=== PATIENT | male | born 1935 | race Caucasian/White ===

== ENCOUNTER 2018-03-16 07:09 | Inpatient (IN) | payer OTHER ==
[2018-03-16] VITALS (8 sets, daily range): BP systolic 108–144; BP diastolic 42–66
[~2018-03-16] VITALS: Ht 172.7 cm; Wt 76.7 kg
[~2018-03-16 07:09] MED LIST: ABILIFY 5 MG TAB5 M1 PO; AMARYL4 MG PO; AMBIEN 10 MG TA10 MG; AMBIEN 10 MG TA10 MG PO; ASPIRIN325 PO; BYSTOLIC 5 MG5 M1 PO; CARDURA2 MG PO; CENTRUM COMPLE1 EACH PO; CINNAMON BARK1 GM MC; CRESTOR20 MG PO; EXFORGE 10-3201 EACH PO; EXFORGE PO; EXFORGEHCT PO; HYDROCHLOROTHIA25 M1 PO; HYDROCHLOROTHIA25 M2 PO; HYDROCODONE-APA1 TA1 PO; JANUVIA100 MG PO; KLOR-CON M1010 MEQ PO; LEVEMIR SUBQ; LEXAPRO20 MG PO; NITROGLYCERIN0.4 MG SL; PLAVIX 75 MG TA75 MG PO; PRILOSEC 20 MG20 MG PO; PROTONIX40 M2 PO; PROZAC20 MG PO; REMERON15 MG PO; SEROQUEL 25 MG25 M1 PO; TRILIPIX135 MG PO; VITAMIN D1000 UNI1 PO; ZETIA10 MG PO; ZYPREXA5 MG PO
[2018-03-16] MEDS ORDERED: LEXAPRO20 MG PO (07:25)
[2018-03-16] MEDS ORDERED: LEVEMIR SUBQ (07:33)
[2018-03-16] MEDS ORDERED: NORVASC10 MG PO (07:34)
[2018-03-16] MEDS ORDERED: PROTONIX40 M2 PO (07:34)
[2018-03-16] MEDS ORDERED: JANUVIA 50 MG T50 M1 PO (07:34)
[2018-03-16] MEDS ORDERED: UNICOMPLEX M TA1 TA1 PO (07:35)
[2018-03-16] MEDS ORDERED: KLOR-CON 1010 MEQ PO (07:35)
[2018-03-16] MEDS ORDERED: FOLGARD TABLET1 EAC1 PO (07:35)
[2018-03-16] MEDS ORDERED: ASPIR 8181 MG PO (07:35)
[2018-03-16] MEDS ORDERED: LASIX 40 MG TAB40 M1 PO (07:35)
[2018-03-16] MEDS ORDERED: MELATONIN5 M1 PO (07:36)
[2018-03-16] MEDS ORDERED: REMERON15 MG PO (07:36)
[2018-03-16] MEDS ORDERED: CARVEDILOL12.5 MG PO (07:36)
[2018-03-16] MEDS ORDERED: SEROQUEL 25 MG25 M1 PO (07:36)
[2018-03-16] MEDS ORDERED: CRESTOR10 MG PO (07:36)
[2018-03-16] MEDS ORDERED: CONSTULOSE10 GM/15 M PO (07:40)
[2018-03-16 08:24] LABS: HEMATOCRIT 38.9 % (42.0-52.0); HEMOGLOBIN 13.3 gm/dL (14.0-18.0); MCH 30.9 pg (26.0-34.0); MCHC 34.3 g/dL (28.0-37.0); MPV 9.1 fl. (7.2-11.1); NUCLEATED RBCS 0 /100WBC; PLATELET COUNT* 177 thou/uL (150-400); RBC 4.32 mil/uL (4.50-6.00); RDW-CV 13.8 % (10.5-14.5); WBC 7.4 thou/uL (4.0-11.0)
[2018-03-16 08:30] LABS: APTT 26.6 Seconds (25.0-31.3); INR 1.1
[2018-03-16 08:36] LABS: ANION GAP 10 mmol/L (7-16); BUN 26 mg/dL (7-18); CALCIUM 7.9 mg/dL (8.5-10.1); CHLORIDE 110 mmol/L (98-107); CO2 24 mmol/L (21-32); CREATININE 1.6 mg/dL (0.6-1.3); GLUCOSE 122 mg/dL (70-99); POTASSIUM 3.4 mmol/L (3.5-5.1); SODIUM 144 mmol/L (136-145)
[2018-03-16 08:55] LABS: ABSOLUTE EOSINOPHILS 0.1 thou/uL (0.0-0.7); ABSOLUTE LYMPHOCYTES 0.4 thou/uL (0.8-5.3); ABSOLUTE MONOCYTES 0.2 thou/uL (0.0-1.2); ABSOLUTE NEUTROPHILS 6.7 thou/uL (1.6-8.1); PLATELET ESTIMATE ADEQUATE
[2018-03-16 08:57] LABS: ALKALINE PHOSPHATASE 89 U/L (46-116); CK-MB MASS 1.4 ng/mL (<0.5-3.6); SGOT 14 U/L (15-37); SGPT 17 U/L (30-65); TOTAL BILIRUBIN 0.3 mg/dL (<0.1-1.0)
[2018-03-16 09:22] LABS: NT-PRO BRAIN NAT PEPTIDE 99 pg/mL (<300); TROPONIN-I LEVEL <0.06 ng/mL (<0.06)
[2018-03-16 12:39] LABS: URINE BILIRUBIN NEGATIVE (Negative); URINE BLOOD NEGATIVE (Negative); URINE CLARITY CLEAR; URINE COLOR YELLOW; URINE GLUCOSE-RANDOM NEGATIVE (Negative); URINE KETONES NEGATIVE (Negative); URINE LEUKOCYTES-REFLEX NEGATIVE (Negative); URINE NITRITE-REFLEX NEGATIVE (Negative); URINE PROTEIN NEGATIVE (Negative); URINE SPECIFIC GRAVITY <= 1.005 (1.005-1.030); URINE UROBILINOGEN 0.2 E.U./dl (0.2-1.0)
[2018-03-16] MEDS ORDERED: METFORMIN HCL500 MG PO (15:06)
--- NOTE | 2018-03-16 16:51 | EKG ---
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: : 1935 Requested By: Ubaldo Jansen Order Number: [id number] MD: Brandon Rose Measurements Intervals [place] Rate: 62 P: 22 OK: 223 QRS: -25 QRSD: 105 T: 0 QT: 472 QTc: 480 Interpretive Statements Sinus rhythm Atrial premature complex Prolonged OK interval consider Inferior infarct, old Anterior infarct, old Compared to ECG 12/09/2015 19:46:01 Atrial premature complex(es) now present Incomplete right bundle-branch block no longer present Myocardial infarct finding still present Electronically Signed On 03-16-2018 16:51:13 CDT by Brandon Rose [email or web address] <ELECTRONICALLY SIGNED> By: Brandon Rose MD, [facility] 03/16/18 1651 0737 0737 Brandon Rose MD, [facility] /EPI
--- NOTE | 2018-03-16 17:28 | 2DMMODE ---
[place] [address] 2 D/M-MODE ECHOCARDIOGRAM Name: CAROLYN VALLECILLO Room: [address] IN [facility]#: [id number] Admission: 03/16/18 Attend Phys: Noel Stallworth Discharge: Date of : 35 Date of Service: 03/16/18 1728 Report #: [id number] THIS REPORT FOR: //name// APPROVED REPORT Study performed: 03/16/2018 16:13:12 EXAM: Comprehensive 2D, Doppler, and color-flow Echocardiogram Patient Location: In-Patient Room #: [facility] Status: routine BSA: 1.93 HR: 66 bpm BP: 144/66 mmHg Rhythm: NSR Other Information Study Quality: Good Indications CVA/TIA Echo Enhancing Agent Indication: Rule out Shunt Agent(s) / Amount(s) Used: Agitated Saline 10 cc 2D Dimensions LVEF(%): 55.34 (>50%) IVSd: 14.07 (7-11mm) LVOT Diam: 19.40 (18-24mm) LVDd: 45.12 mm PWd: 12.42 (7-11mm) Ascending Ao: 34.61 (22-36mm) LVDs: 32.19 (25-40mm) Aortic Root: 35.10 mm Parsons's LVEF: 55.34 % Volumes Left Atrial Volume (Systole) LA ESV Index: 27.70 mL/m2 Aortic Valve AoV Peak Hemant.: 1.11 m/s AO Peak Gr.: 4.95 mmHg LVOT Max P.84 mmHg AO Mean Gr.: 2.35 mmHg LVOT Mean P.45 mmHg LVOT Max V: 0.84 m/s AO V2 VTI: 23.22 cm LVOT Mean V: 0.56 m/[place] [address] 2 D/M-MODE ECHOCARDIOGRAM Name: CAROLYN VALLECILLO Room: [address] IN [facility].#: [id number] Admission: 03/16/18 Attend Phys: Noel Stallworth Discharge: Date of : 35 Date of Service: 03/16/18 1728 Report #: [id number] REJI (VTI): 2.76 cm2 LVOT V1 VTI: 21.72 cm Mitral Valve E/A Ratio: 0.98 MV Decel. Time: 248.63 ms MV E Max Hemant.: 0.84 m/s MV PHT: 72.10 ms MVA (PHT): 3.05 cm2 TDI E/Lateral E': 6.46 E/Medial E': 12.00 Medial E' Hemant.: 0.07 m/s Lateral E' Hemant.: 0.13 m/s Pulmonary Valve PV Peak Hemant.: 0.97 m/s PV Peak Gr.: 3.73 mmHg Left Ventricle The left ventricle is normal size. There is normal LV segmental wall motion. Mild concentric left ventricular hypertrophy. Left ventricular systolic function is normal. The left ventricular ejection fraction is within the normal range. LVEF is 60-65%. The left ventricular diastolic function is normal. Right Ventricle The right ventricle is normal size. The right ventricular systolic function is normal. Atria The left atrium size is normal. Interatrial septum is intact without evidence of ASD or PFO. The right atrium size is normal. Aortic Valve The aortic valve is normal in structure. No aortic regurgitation is present. There is no aortic valvular stenosis. Mitral Valve The mitral valve is normal in structure. Trace mitral regurgitation. No evidence of mitral valve stenosis. Tricuspid Valve The tricuspid valve is normal in structure. Unable to assess PA pressure. Trace tricuspid regurgitation. Pulmonic Valve Pulmonic valve is not well visualized. There [place] [address] 2 D/M-MODE ECHOCARDIOGRAM Name: CAROLYN VALLECILLO Room: [address] IN .R.#: [id number] Admission: 03/16/18 Attend Phys: Noel Stallworth Discharge: Date of : 35 Date of Service: 03/16/18 1728 Report #: [id number] regurgitation. Great Vessels The aortic root is normal in size. IVC is not well visualized. Pericardium There is no pericardial effusion. <Conclusion> Mild concentric left ventricular hypertrophy. LVEF is 60-65%. Interatrial septum is intact without evidence of ASD or PFO. <ELECTRONICALLY SIGNED> By: Brandon Rose MD, [facility] 03/16/181727 27 27 Brandon Rose MD, [facility]ACC /INF
[2018-03-17 04:00] VITALS: BP 156/64
[2018-03-17 05:31] LABS: ALBUMIN 2.7 g/dL (3.4-5.0); ALKALINE PHOSPHATASE 97 U/L (46-116); ANION GAP 8 mmol/L (7-16); BUN 21 mg/dL (7-18); CALCIUM 7.7 mg/dL (8.5-10.1); CHLORIDE 110 mmol/L (98-107); CHOLESTEROL 143 mg/dL (<200); CO2 27 mmol/L (21-32); CREATININE 1.5 mg/dL (0.6-1.3); GLUCOSE 198 mg/dL (70-99); HDL CHOLESTEROL 21 mg/dL (>40); LDL CHOLESTEROL 98 mg/dL (<100); POTASSIUM 3.9 mmol/L (3.5-5.1); SGOT 12 U/L (15-37); SGPT 15 U/L (30-65); SODIUM 145 mmol/L (136-145); TC:HDL 6.8 Ratio (Not establshd); TOTAL BILIRUBIN 0.3 mg/dL (<0.1-1.0); TOTAL PROTEIN 5.3 g/dL (6.4-8.2); TRIGLYCERIDE 121 mg/dL (<150); VLDL 24 mg/dL (<40)
[2018-03-17 05:33] LABS: SERUM ASSESSMENT CLEAR
[2018-03-17 09:00] VITALS: BP 147/60; BP 147/90
[2018-03-17 12:03] VITALS: BP 140/53
[2018-03-17 12:30] VITALS: BP 140/53
[2018-03-17 15:38] VITALS: BP 153/62
[2018-03-17 16:09] LABS: GLYCOHEMOGLOBIN (HGB A1C) 8.2 % (4.8-5.6)
[2018-03-17 16:30] LABS: BE -2.2 mmol/L (-2 to +3); HCO3 21.6 mmol/L (22.0-26.0); PCO2 34.4 mmHg (35.0-45.0); pH 7.416 (7.340-7.450)
[2018-03-17 16:34] LABS: PO2 56.1 mmHg (75.0-100.0)
[2018-03-17 20:46] VITALS: BP 145/57
[2018-03-18] VITALS (9 sets, daily range): BP systolic 134–146; BP diastolic 51–62
[2018-03-18 05:06] LABS: HEMATOCRIT 37.8 % (42.0-52.0); HEMOGLOBIN 12.9 gm/dL (14.0-18.0); MCH 31.1 pg (26.0-34.0); MCV 91.3 fL (80.0-100.0); MPV 8.7 fl. (7.2-11.1); RBC 4.14 mil/uL (4.50-6.00); RDW-CV 14.2 % (10.5-14.5); WBC 6.8 thou/uL (4.0-11.0)
[2018-03-18 06:00] LABS: CALCIUM 7.6 mg/dL (8.5-10.1); CREATININE 1.1 mg/dL (0.6-1.3); MAGNESIUM 1.2 mg/dL (1.8-2.4); POTASSIUM 3.3 mmol/L (3.5-5.1)
[2018-03-18 11:34] LABS: BE -3.3 mmol/L (-2 to +3); PCO2 27.6 mmHg (35.0-45.0); PO2 64.7 mmHg (75.0-100.0); pH 7.456 (7.340-7.450)
[2018-03-18 21:34] LABS: MAGNESIUM 1.3 mg/dL (1.8-2.4); POTASSIUM 3.7 mmol/L (3.5-5.1)
[2018-03-19] VITALS (7 sets, daily range): BP systolic 146–165; BP diastolic 55–66
[2018-03-19 06:53] LABS: MAGNESIUM 1.9 mg/dL (1.8-2.4); POTASSIUM 3.9 mmol/L (3.5-5.1)
--- NOTE | 2018-03-19 15:39 | EKG ---
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 : 1935 Requested By: Francine Mensah Order Number: [id number] Reading MD: Brandon Rose Measurements Intervals Lane Rate: 52 P: 1 SC: 222 QRS: -43 QRSD: 94 T: 27 QT: 462 QTc: 430 Interpretive Statements Sinus bradycardia Prolonged SC interval Probable left atrial enlargement Left axis deviation Probable septal infarct, old Compared to ECG 03/16/2018 07:37:20 Left-axis deviation now present Atrial premature complex(es) no longer present Myocardial infarct finding still present Electronically Signed On 03-19-2018 15:39:40 CDT by Brandon Rose [email or web address] <ELECTRONICALLY SIGNED> By: Brandon Rose MD, [facility] 03/19/18 1539 1210 1210 Brandon Rose MD, [facility] /EPI
[2018-03-20] VITALS (8 sets, daily range): BP systolic 160–168; BP diastolic 53–58
[2018-03-20] MEDS ORDERED: LIPITOR 20 MG T20 M1 PO (09:21)
[2018-03-20] MEDS ORDERED: LEVAQUIN 750 M750 MG PO (09:21)
[2018-03-20] MEDS ORDERED: COZAAR 25 MG TA25 M1 PO (15:48)
--- NOTE | 2018-03-21 13:07 | CON ---
[address] [address] CONSULTATION Name: CAROLYN VALLECILLO Room: [address] IN .R.#: [id number] Admission: 03/16/18 Attend Phys: Noel Beard, Discharge: 03/20/18 Date of : 35 Report #: [id number] THIS REPORT FOR: //name// CC: Jose Rivas DATE OF SERVICE: 03/19/2018 HISTORY OF PRESENT ILLNESS: The patient is an 82-year-old white male who I was asked to see in the hospital today after he was noted to be bradycardic. The history is obtained from the patient, his and some old records. The patient has a long history of diabetes, hypertension and hyperlipidemia. He also smoked heavily until 7 years ago. He had his first heart attack in 1997 and he had [address] [facility] [place]. He had restenosis and underwent triple vessel bypass surgery at [facility] in 2002. He apparently had stents here placed by Dr. Downey back in 2010. In 2015, he underwent a redo coronary artery bypass surgery with [address] [facility]. He had a prolonged postoperative course and was in the ICU for [address] [facility]. They apparently could not get him off the ventilator. He became anemic. He eventually went to rehabilitation. He is followed by hospice superintendent at [facility]. He is not very active because of his age. He denies any significant chest pain, shortness of breath, palpitations, syncope. He was admitted to [facility] 3 days ago. According to the , he got up during the night, he could not get his words out. He had some left-sided weakness. Paramedics were called. He then vomited. He was weak. He was seen by Neurology for possible stroke. He was felt to have confusion and was hypoxic. He was taken off of some of his medications. Medical therapy was recommended. He was noted to have bradycardia. I was asked to see him for further evaluation. PAST MEDICAL HISTORY: Significant for cataract extraction, cholecystectomy, prostate surgery. He has a history of hypertension, diabetes, hyperlipidemia. MEDICATIONS: Include amlodipine, aspirin, carvedilol, glimepiride, insulin, metformin, Remeron, Protonix, potassium, Seroquel, Januvia. He is no longer on Crestor. ALLERGIES: HE HAS AN INTOLERANCE TO CEPHALEXIN, SULFA DRUGS, NEURONTIN. FAMILY HISTORY: Negative for heart disease. SOCIAL HISTORY: He is . He and his live in [place], [place]. 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 He quit smoking in 2010. No alcohol abuse. REVIEW OF SYSTEMS: He has had no history of stroke, asthma. [place] [address] CONSULTATION Name: CAROLYN VALLECILLO Room: [address]#: [id number] Admission: 03/16/18 Attend Phys: Noel Beard, Discharge: 03/20/18 Date of : 35 Report #: [id number] in the past. He has had a peptic ulcer. No kidney disease, no cancer. No psychiatric illness. PHYSICAL EXAMINATION: GENERAL: Revealed elderly male lying in bed. He appeared in no distress. VITAL SIGNS: He had a blood pressure of 150/50, pulse 50. He is afebrile. HEENT: He is anicteric, conjunctivae pink. Mucous membranes are moist. NECK: Veins nondistended. No carotid bruits. Neck supple. CHEST: Clear to auscultation. CARDIOVASCULAR: Regular bradycardia. ABDOMEN: Soft, nontender. EXTREMITIES: Had no edema. Dorsalis pedis pulse 2+ in right, left could not be palpated. SKIN: Warm and dry. NEUROLOGIC: Nonfocal. LABORATORY DATA: His ECG on admission showed sinus bradycardia with nonspecific ST-segment changes. On the monitor, he has remained bradycardic. Additional workup during his hospitalization included an echocardiogram done on admission 3 days ago that showed left ventricular hypertrophy, ejection fraction 60% with no PFO. His x-rays since his admission included a CT scan of the head that showed age-related atrophy. The chest x-ray showed no acute abnormality. CT scan of the abdomen without contrast intravenously, but with oral contrast showed gastric distention, renal cysts, enlarged prostate. He had a CT scan of the chest without contrast that showed lower lobe infiltrate. Interstitial lung changes. He had a previous carotid Doppler study that showed mild plaquing back in 2012. His lab work included sodium 142, potassium 3.9, creatinine 1.1. Liver function studies showed an albumin of 2.7. Troponin 0.06. BNP 27. His cholesterol 143, triglyceride 121, HDL 21, LDL 98. TSH 0.4. B12 529. White blood cell count 6.8, hemoglobin 12.9. IMPRESSION AND RECOMMENDATIONS: 1. Confusion. Possibly overmedication from antipsychotic medications. 2. Coronary artery disease. No recent angina. I would continue aspirin 81 mg a day. 3. Hypertension. The patient has been on a calcium kendrick, beta kendrick. I would decrease the dose of beta kendrick due to bradycardia and fatigue. 4. Diabetes. 5. Hyperlipidemia. I would resume his Crestor. 6. Aspiration pneumonia. The patient followed by Pulmonary. 7. History of hepatitis B. 8. Previous tobacco abuse. <ELECTRONICALLY SIGNED> By: Brandon Rose MD, FACC 03/21/18 1307 1357 1912Davisierra Rose MD, FACC /nt
--- NOTE | 2018-03-27 15:21 | CON ---
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 He was recently discharged from physical and occupational therapy as he was back to his baseline and the patient was being discharged to the home setting. Medications have been reviewed. ALLERGIES: CEPHALEXIN, LORAZEPAM, BUPROPION, CYCLOBENZAPRINE, DILTIAZEM, LUNESTA, GABAPENTIN, METFORMIN AND SULFA. MEDICATIONS: Reviewed. LABORATORIES: Reviewed. SOCIAL HISTORY: No tobacco, alcohol or illicit drug use. FAMILY HISTORY: Heart disease. REVIEW OF SYSTEMS: A 14-point review of systems was not completed as the patient was discharged. ASSESSMENT: Transient ischemic attack versus evolving cerebrovascular accident with no residual findings, discharged from physical and occupational therapy and seemed to be back to baseline. PLAN: Recommend possibly initially home health to ensure the patient remains at baseline status. Other than that probably would not need further rehabilitation. <ELECTRONICALLY SIGNED> By: Milly Ceja DO 03/27/18 1521 1659 0032Kelana paula Ceja DO /nt
== END 2018-03-20 16:15 | disposition home health service (06) | DRG 177 ==
LOC: M.ERS 07:09 → M.TBA-ER 10:40 → M.2W 10:40
PROVIDERS: Emergency Medicine Emergency Medical Services; Internal Medicine; ADMIT Family Medicine
DX: J15.6 Pneumonia due to other Gram-negative bacteria (principal); G93.41 Metabolic encephalopathy; J96.01 Acute respiratory failure with hypoxia; E44.0 Moderate protein-calorie malnutrition; N17.9 Acute kidney failure, unspecified; J69.0 Pneumonitis due to inhalation of food and vomit; I11.9 Hypertensive heart disease without heart failure; I25.10 Atherosclerotic heart disease of native coronary artery without angina pectoris; E11.65 Type 2 diabetes mellitus with hyperglycemia; E78.5 Hyperlipidemia, unspecified; F41.9 Anxiety disorder, unspecified; F32.9 Major depressive disorder, single episode, unspecified; N40.0 Benign prostatic hyperplasia without lower urinary tract symptoms; E87.6 Hypokalemia; E83.42 Hypomagnesemia; R26.9 Unspecified abnormalities of gait and mobility; R00.1 Bradycardia, unspecified; Z86.73 Personal history of transient ischemic attack (TIA), and cerebral infarction without residual deficits; Z95.5 Presence of coronary angioplasty implant and graft; Z88.2 Allergy status to sulfonamides; Z90.49 Acquired absence of other specified parts of digestive tract; Z95.1 Presence of aortocoronary bypass graft; Z88.8 Allergy status to other drugs, medicaments and biological substances; Z79.82 Long term (current) use of aspirin; Z79.899 Other long term (current) drug therapy; Z79.2 Long term (current) use of antibiotics; Z98.49 Cataract extraction status, unspecified eye; Z86.19 Personal history of other infectious and parasitic diseases; Z68.27 Body mass index [BMI] 27.0-27.9, adult

== ENCOUNTER 2018-08-27 16:35 | Inpatient (IN) | payer OTHER ==
[~2018-08-27] VITALS: Ht 172.7 cm; Wt 74.4 kg
[~2018-08-27 16:35] MED LIST changes: +ASPIR 8181 MG PO; +CARVEDILOL12.5 MG PO; +CONSTULOSE10 GM/15 M PO; +COZAAR 25 MG TA25 M1 PO; +CRESTOR10 MG PO; +FOLGARD TABLET1 EAC1 PO; +JANUVIA 50 MG T50 M1 PO; +KLOR-CON 1010 MEQ PO; +LASIX 40 MG TAB40 M1 PO; +LEVAQUIN 750 M750 MG PO; +LIPITOR 20 MG T20 M1 PO; +MELATONIN5 M1 PO; +METFORMIN HCL500 MG PO; +NORVASC10 MG PO; +UNICOMPLEX M TA1 TA1 PO
[2018-08-27 16:38] VITALS: BP 180/90
[2018-08-27 16:57] LABS: ABSOLUTE EOSINOPHILS 0.1 thou/uL (0.0-0.7); ABSOLUTE LYMPHOCYTES 4.8 thou/uL (0.8-5.3); ABSOLUTE MONOCYTES 0.7 thou/uL (0.0-1.2); ABSOLUTE NEUTROPHILS 5.2 thou/uL (1.6-8.1); BASOPHILS 0.3 %; EOSINOPHILS 1.1 %; HEMOGLOBIN 16.9 gm/dL (14.0-18.0); LYMPHOCYTES 44.1 %; MCH 31.9 pg (26.0-34.0); MCHC 34.5 g/dL (28.0-37.0); MCV 92.6 fL (80.0-100.0); MONOCYTES 6.9 %; MPV 8.9 fl. (7.2-11.1); NUCLEATED RBCS 0 /100WBC; PLATELET COUNT* 301 thou/uL (150-400); POLYS 47.6 %; RBC 5.29 mil/uL (4.50-6.00); RDW-CV 13.6 % (10.5-14.5); WBC 10.8 thou/uL (4.0-11.0)
[2018-08-27 17:08] LABS: ANION GAP 12 mmol/L (7-16); BUN 23 mg/dL (7-18); CALCIUM 9.9 mg/dL (8.5-10.1); CHLORIDE 102 mmol/L (98-107); CO2 25 mmol/L (21-32); CREATININE 1.3 mg/dL (0.6-1.3); GLUCOSE 273 mg/dL (70-99); POTASSIUM 3.8 mmol/L (3.5-5.1); SODIUM 139 mmol/L (136-145)
[2018-08-27 17:11] LABS: APTT 26.1 Seconds (25.0-31.3); INR 0.9; PROTIME 9.7 Seconds (9.20-11.50)
[2018-08-27 17:15] LABS: ALBUMIN 4.3 g/dL (3.4-5.0); ALKALINE PHOSPHATASE 175 U/L (46-116); LIPASE 170 U/L (73-393); SGOT 15 U/L (15-37); SGPT 27 U/L (30-65); TOTAL BILIRUBIN 0.3 mg/dL (<0.1-1.0); TOTAL PROTEIN 8.4 g/dL (6.4-8.2); TROPONIN-I LEVEL <0.06 ng/mL (<0.06)
[2018-08-27] MEDS ORDERED: KLOR-CON 1010 MEQ PO (17:21)
[2018-08-27] MEDS ORDERED: ONDANSETRON HCL4 M2 PO (17:21)
[2018-08-27] MEDS ORDERED: LASIX 40 MG TAB40 M2 PO (17:22)
[2018-08-27] MEDS ORDERED: AMITRIPTYLINE H25 M2 PO (17:22)
[2018-08-27] MEDS ORDERED: JANUVIA 50 MG T50 MG PO (17:23)
[2018-08-27 20:32] VITALS: BP 178/87
[2018-08-27 20:33] VITALS: BP 170/68
[2018-08-28] VITALS: BP 149/68
[2018-08-28 04:00] VITALS: BP 149/66
--- NOTE | 2018-08-28 05:24 | NUR ---
Pt admitted from ED. VSS. [facility]. SR w/ AVB per monitor. No complaints. Reports he is hopeful of being discharged soon. Lives at home with . On 2L O2 per NC. Desats to mid-80s on RA. Will continue to monitor.
[2018-08-28 07:56] VITALS: BP 140/60
--- NOTE | 2018-08-28 09:45 | NUR ---
REC'D REPORT FROM NOC RN, ASSUMED CARE OF PT APPROX 0730. PT A&O X4, [place], ABLE TO COMMUNICATE NEEDS TO STAFF. PERIODICALS LIBRARY ASSISTANT IN PLACE, SR, 1ST DEGREE A/V BLOCK. O2 SAT >92% ON 2L/MIN NC. ASSESSMENT COMPLETE, DOCUMENTED. MEDS PER DEC. HOURLY ROUNDING FOR SAFETY, POSITION CHANGE. EDUCATION GIVEN R/T POSITION CHANGE, MAINTAINING SKIN INTEGRITY. CALL LIGHT WITHIN REACH. APPROPRIATE USE OF CALL LIGHT FOR NEEDS, AMBULATION.
[2018-08-28 11:22] VITALS: BP 148/58
[2018-08-28 14:20] LABS: BE -0.7 mmol/L (-2 to +3); HCO3 21.7 mmol/L (22.0-26.0); PCO2 29.4 mmHg (35.0-45.0); pH 7.485 (7.340-7.450)
[2018-08-28 14:29] LABS: PO2 51.5 mmHg (75.0-100.0)
[2018-08-28 15:34] VITALS: BP 128/52
--- NOTE | 2018-08-28 15:41 | NUR ---
Pt is A&O. Resides at home with his . Normally independent with ADLs. Pt has a cane and walker for mobility. No home o2. Hx of Critical access hospital. Pt has been in acute rehab at [facility]. No hx of SNF. Goal is home. Following.
--- NOTE | 2018-08-28 16:00 | NUR ---
PRECISION LENS GRINDER APPRENTICE TECH OBTAINED ORTHOSTATIC HYPOTENSION VS AND CHARTED USUAL VS BUT ENTERED THE SITTING AND STANDING IN THE COMMENTS BOX. RESULTS FOLLOWS 128/52 LYING BP 131/50 SITTING BP 135/61 STANDING BP ALL BP FROM R ARM
--- NOTE | 2018-08-28 16:07 | 2DMMODE ---
[place] [address] 2 D/M-MODE ECHOCARDIOGRAM Name: CAROLYN VALLECILLO Room: [address] IN [facility]#: [id number] Admission: 08/27/18 Attend Phys: Francine Mensah, Discharge: Date of : 35 Date of Service: 08/28/18 1607 Report #: [id number] THIS REPORT FOR: //name// APPROVED REPORT Study performed: 08/28/2018 09:28:31 EXAM: Comprehensive 2D, Doppler, and color-flow Echocardiogram Patient Location: In-Patient Room #: 200 Status: routine BSA: 1.88 HR: 77 bpm BP: 140/60 mmHg Rhythm: NSR Other Information Study Quality: Good Indications Arrhythmia near syncope 2D Dimensions IVSd: 14.17 (7-11mm) LVOT Diam: 19.12 (18-24mm) LVDd: 46.07 mm PWd: 10.31 (7-11mm) Ascending Ao: 30.94 (22-36mm) LVDs: 24.21 (25-40mm) Aortic Root: 33.21 mm Volumes Left Atrial Volume (Systole) LA ESV Index: 23.30 mL/m2 Aortic Valve AoV Peak Hemant.: 1.45 m/s AO Peak Gr.: 8.46 mmHg LVOT Max P.46 mmHg AO Mean Gr.: 4.48 mmHg LVOT Mean P.06 mmHg LVOT Max V: 1.27 m/s AO V2 VTI: 28.12 cm LVOT Mean V: 0.80 m/s REJI (VTI): 2.80 cm2 LVOT V1 VTI: 27.40 cm Mitral Valve E/A Ratio: 1.30 MV Decel. Time: 153.32 [place] [address] 2 D/M-MODE ECHOCARDIOGRAM Name: CAROLYN VALLECILLO Room: [address] IN [facility]#: [id number] Admission: 08/27/18 Attend Phys: Francine Mensah, Discharge: Date of : 35 Date of Service: 08/28/18 1607 Report #: [id number] MV E Max Hemant.: 0.99 m/s MV PHT: 44.46 ms MVA (PHT): 4.95 cm2 TDI E/Lateral E': 9.00 E/Medial E': 14.14 Medial E' Hemant.: 0.07 m/s Lateral E' Hemant.: 0.11 m/s Pulmonary Valve PV Peak Hemant.: 1.13 m/s PV Peak Gr.: 5.09 mmHg Tricuspid Valve RAP Estimate: 5.00 mmHg TR Peak Gr.: 26.73 mmHg RVSP: 32.00 mmHg PA Pressure: 32.00 mmHg Left Ventricle The left ventricle is normal size. There is normal LV segmental wall motion. Mild concentric left ventricular hypertrophy. Left ventricular systolic function is normal. LVEF is 65-70%. Transmitral Doppler flow pattern suggests impaired LV relaxation. Right Ventricle Right ventricle is mildly dilated. The right ventricular systolic function is normal. Atria Left atrium is mildly dilated. Right atrium is mildly dilated. Aortic Valve The aortic valve is normal in structure. No aortic regurgitation is present. There is no aortic valvular stenosis. Mitral Valve The mitral valve is normal in structure. There is no mitral valve regurgitation noted. No evidence of mitral valve stenosis. Tricuspid Valve The tricuspid valve is normal in structure. Mild tricuspid regurgitation. Mild pulmonary hypertension. Pulmonic Valve The pulmonary valve is normal in structure. There is no pulmon[place] [address] 2 D/M-MODE ECHOCARDIOGRAM Name: CARLOYN VALLECILLO Marleny Room: [address]#: [id number] Admission: 08/27/18 Attend Phys: Francine Mensah, Discharge: Date of : 35 Date of Service: 08/28/18 1607 Report #: [id number] Great Vessels The aortic root is normal in size. IVC is normal in size and collapses >50% with inspiration. Pericardium There is no pericardial effusion. <Conclusion> The left ventricle is normal size. Mild concentric left ventricular hypertrophy. Left ventricular systolic function is normal. LVEF is 65-70%. Transmitral Doppler flow pattern suggests impaired LV relaxation. Right ventricle is mildly dilated. Left atrium is mildly dilated. Right atrium is mildly dilated. Mild tricuspid regurgitation. Mild pulmonary hypertension. IVC is normal in size and collapses >50% with inspiration. <ELECTRONICALLY SIGNED> By: Rakan Issa MD, FACC 08/28/18 1607 160 160 Rakan Issa MD, FACC /INF
--- NOTE | 2018-08-28 18:12 | EKG ---
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 : 1935 Requested By: Ubaldo Jansen Order Number: [id number] MD: Rakan Issa Measurements Intervals [place] Rate: 91 P: 26 CT: 204 QRS: -26 QRSD: 90 T: 26 QT: 362 QTc: 446 Interpretive Statements Sinus rhythm Possible left atrial enlargement Borderline left axis deviation RSR' in V1 or V2, probably normal variant Compared to ECG 03/19/2018 12:10:25 RSR' in V1 or V2 now present Sinus bradycardia no longer present First degree AV block no longer present Myocardial infarct finding no longer present Electronically Signed On 08-28-2018 18:12:31 CDT by Rakan Issa [email or web address] <ELECTRONICALLY SIGNED> By: Rakan Issa MD, FACC 08/28/18 1812 1636 163 Rakan Issa MD, FACC /EPI
--- NOTE | 2018-08-28 19:10 | NUR ---
PT LAYING IN BED, SEMI-RECUMBENT POSITION PER ORDER. BEDSIDE REPORT GIVEN. PT STATES HE DOESN'T HAVE HEARING AIDS IN HE ENTERED THE SHOWER WITH HEARING AIDS IN PLACE. HEARING AIDS ARE IN THEIR SPECIAL CASE AT BEDSIDE. PT HAS CALL LIGHT WITHIN REACH.
[2018-08-28 19:11] LABS: GLYCOHEMOGLOBIN (HGB A1C) 7.9 % (4.8-5.6)
[2018-08-28 20:00] VITALS: BP 139/60
[2018-08-29] VITALS: BP 145/63
[2018-08-29 04:10] VITALS: BP 173/72
--- NOTE | 2018-08-29 05:02 | NUR ---
ASSUMED CARE OF PT AFTER REPORT AT 1930. PT A&OX4. VSS. PHYSICAL ASSESSMENT COMPLETED AND CHARTED. PT ON O2 AT 2L NC INITIALLY BUT O2 SATS UP UNTIL 89%. INCREASED O2 TO 3L. PT TRACING SR 1ST DEG ON TELE. DENIES ANY PAIN OR DISCOMFORT. PT REFUSED SCDS EVEN AFTER EDUCATION WAS GIVEN. HS REST & SAFETY GOALS ACHIEVED. CALL LIGHT WITHIN REACH.BED IN LOW POSITION. BED ALARM ON.
[2018-08-29 07:26] VITALS: BP 155/70
[2018-08-29 12:00] VITALS: BP 144/62
[2018-08-29 16:00] VITALS: BP 139/60
[2018-08-29 20:00] VITALS: BP 128/56
[2018-08-30] VITALS: BP 169/73
[2018-08-30 04:00] VITALS: BP 161/82
--- NOTE | 2018-08-30 04:32 | NUR ---
ASSUMED CARE OF PT AFTER REPORT AT 1930. PT A&OX4. VSS. PHYSICAL ASSESSMENT COMPLETED AND CHARTED. PT ON NC AT 2L NC WITH 92% O2 SAT.PT TRACING SR ON TELE. PT UP STANDBY TO RESTROOM. DENIES ANY PAIN OR DISCOMFORT. HOURLY ROUNDING OBSERVED. HS REST & SAFETY GOALS ACHIEVED. CALL LIGHT WITHIN REACH. BED IN LOW POSITION. BED ALARM ON.
[2018-08-30 07:46] VITALS: BP 147/69
--- NOTE | 2018-08-30 08:08 | NUR ---
RECIEVED REPORT. ASSUMED CARE OF PT AT 0730. VSS. CARDIAC MONTIORING IN PLACE SR. AM ASSESSMENT AND VITALS COMPLETED CHARTED. PT ALERT AND ORIETNED. PT ON 2L PER NC WITH O2 SAT AT 92%. PT SLEEPING DURING ASSESSMENT BUT IS EASILY AROUSABLE. PT DENIES ANY PAIN. IV SALINE LOCKED. PT'S FAMILY AT BEDSIDE. PT AND FAMILY INFORMED OF PLAN OF CARE. THEY COMMUNICATE UNDERSTANDING. CALL LIGHT IS WITHIN REACH. WILL CONTINUE TO MONITOR FOR DURAITON OF SHIFT.
[2018-08-30] MEDS ORDERED: ADULT LOW DOSE81 MG PO (08:38)
[2018-08-30] MEDS ORDERED: LEVAQUIN 750 M750 MG PO (08:38)
--- NOTE | 2018-08-30 10:15 | NUR ---
PT.TO DISCHARGE TODAY. NEEDS HOME O2 AT 2L/NC CONTINUOUSLY PER R.T.AFTER DOING SATS AND ABG'S NOTED FROM 08/28. CONTACTED ON PHONE. SHE SAID SHE HAD BEEN HERE BUT WENT BACK HOME TO BRING HIM CLOTHES. SHE WILL BE IN MID ATERNOON. DISCUSSED HOME O2 WITH HER. SHE CHOSE [facility]. SHE SAID SHE DID NOT WANT TO HAVE TO STORE O2 TANKS IN THEIR HOME LIKE THEY DID LAST TIME. EXPLAINED THIS IS IF THE ELECTRICITY GOES OFF. TOLD HER I WOULD SPEAK WITH [facility] ABOUT IT BUT SHE MAY NEED TO TALK WITH SENIOR VICE PRESIDENT ALSO. SPOKE WITH [facility] AND FAXED HER FACE SHEET,ORDER,SATS, ABG'S AND DISCHARGE SUMMARY. SHE WILL DELIVER A TANK TO HOSPITAL ROOM AND THEN THEY WILL NEED TO CALL FOR HOME DELIVERY. ALSO DISCUSSED HOME HEALTH WITH . WILL ORDER NURSING AND P.T. SHE WOULD LIKE TO USE [facility]. SPOKE WITH INTAKE AND FAXED REFERRAL INFORMATION AND DISCHARGE SUMMARY TO [facility] AT [phone]. THEY WILL CALL PT.TO SET UP APPTS.
[2018-08-30 10:43] VITALS: BP 147/69
[2018-08-30 11:34] VITALS: BP 146/59
--- NOTE | 2018-08-30 14:14 | NUR ---
DISCHARGE ORDERS RECIEVED AND PREPARED. IV AND CARDIAC MONTIORING DISCONTINUED. PT AND SPOUSE EDUCATED ON DISCHARGE INSTRCUTIONS. ALL QUESTIONS AND CONCERNS ANSERED AT THIS TIME. PT GIVEN COPY OF DISCHARGE INSTRUCTIONS, NEW SCRIPTS, AND MED INFORMATION. PT'S OXYGEN DELIVERED TO HIS ROOM. PT TO WEAR 2L AT HOME. ALL PT'S BELONGINGS GATHERED AND SENT HOME WITH PT. PT ESCORTED OFF UNIT WITH NURSING STAFF. PT LEFT IN PRIVATE VEHICLE. 1415.
== END 2018-08-30 14:15 | disposition home or self-care (01) | DRG 177 ==
LOC: M.ERS 16:35 → M.TBA-ER 18:45 → M.2W 18:45
PROVIDERS: Emergency Medicine Emergency Medical Services; Internal Medicine; ADMIT Internal Medicine
DX: J69.0 Pneumonitis due to inhalation of food and vomit (principal); J96.01 Acute respiratory failure with hypoxia; I50.32 Chronic diastolic (congestive) heart failure; I13.0 Hypertensive heart and chronic kidney disease with heart failure and stage 1 through stage 4 chronic kidney disease, or unspecified chronic kidney disease; I43 Cardiomyopathy in diseases classified elsewhere; Z23 Encounter for immunization; I65.22 Occlusion and stenosis of left carotid artery; J44.9 Chronic obstructive pulmonary disease, unspecified; N18.3 Chronic kidney disease, stage 3 (moderate); E11.65 Type 2 diabetes mellitus with hyperglycemia; E11.22 Type 2 diabetes mellitus with diabetic chronic kidney disease; I16.0 Hypertensive urgency; E78.5 Hyperlipidemia, unspecified; I25.10 Atherosclerotic heart disease of native coronary artery without angina pectoris; Z95.1 Presence of aortocoronary bypass graft; Z95.5 Presence of coronary angioplasty implant and graft; I25.2 Old myocardial infarction; Z86.73 Personal history of transient ischemic attack (TIA), and cerebral infarction without residual deficits; Z88.2 Allergy status to sulfonamides; Z88.8 Allergy status to other drugs, medicaments and biological substances; Z87.891 Personal history of nicotine dependence; Z79.82 Long term (current) use of aspirin; Z79.899 Other long term (current) drug therapy

== ENCOUNTER 2019-12-11 11:52 | Observation (INO) | payer OTHER ==
[~2019-12-11] VITALS: Ht 172.7 cm; Wt 72.6 kg
[~2019-12-11 11:52] MED LIST changes: +ADULT LOW DOSE81 MG PO; +AMITRIPTYLINE H25 M2 PO; +ARICEPT 5 MG TAB5 MG PO; +JANUVIA 50 MG T50 MG PO; +LASIX 40 MG TAB40 M2 PO; +LISINOPRIL30 MG PO; +MACROBID 100 M100 MG PO; +ONDANSETRON HCL4 M2 PO
[2019-12-11 12:11] VITALS: BP 160/76
[2019-12-11 12:35] LABS: ABSOLUTE EOSINOPHILS 0.1 thou/uL (0.0-0.7); ABSOLUTE LYMPHOCYTES 1.2 thou/uL (0.8-5.3); ABSOLUTE MONOCYTES 0.6 thou/uL (0.0-1.2); ABSOLUTE NEUTROPHILS 3.6 thou/uL (1.6-8.1); BASOPHILS 0.7 %; EOSINOPHILS 1.7 %; HEMATOCRIT 43.3 % (42.0-52.0); HEMOGLOBIN 14.7 gm/dL (14.0-18.0); LYMPHOCYTES 22.6 %; MCV 82.3 fL (80.0-100.0); MONOCYTES 10.2 %; MPV 8.4 fl. (7.2-11.1); NUCLEATED RBCS 0 /100WBC; PLATELET COUNT* 233 thou/uL (150-400); POLYS 64.8 %; RBC 5.26 mil/uL (4.50-6.00); RDW-CV 14.6 % (10.5-14.5); WBC 5.5 thou/uL (4.0-11.0)
[2019-12-11 12:45] LABS: CALCIUM 8.8 mg/dL (8.5-10.1); CREATININE 1.4 mg/dL (0.6-1.3)
[2019-12-11 12:49] LABS: ALBUMIN 3.5 g/dL (3.4-5.0); MAGNESIUM 1.8 mg/dL (1.8-2.4); TOTAL BILIRUBIN 0.3 mg/dL (<0.1-1.0)
[2019-12-11 13:27] LABS: URINE BILIRUBIN NEGATIVE (Negative); URINE BLOOD NEGATIVE (Negative); URINE CLARITY CLEAR; URINE COLOR YELLOW; URINE GLUCOSE-RANDOM 2+ (Negative); URINE KETONES NEGATIVE (Negative); URINE LEUKOCYTES-REFLEX NEGATIVE (Negative); URINE NITRITE-REFLEX NEGATIVE (Negative); URINE PROTEIN 2+ (Negative); URINE SPECIFIC GRAVITY 1.025 (1.005-1.030); URINE UROBILINOGEN 0.2 E.U./dl (0.2-1.0)
[2019-12-11 13:36] LABS: BACTERIA-REFLEX 1-9 Few /HPF (None Seen); CASTS None Seen /LPF (None Seen); CRYSTALS None Seen /LPF (None Seen); MUCUS 4-6 Moderate strn/LPF (None Seen); SQUAMOUS 4-10 Moderate /LPF (0-3); URINE RBC 0-2 Rare /HPF (0-2); URINE WBC-REFLEX 0-5 Rare /HPF (0-5)
--- NOTE | 2019-12-11 16:42 | EKG ---
[place] [address] ELECTROCARDIOGRAM REPORT Name: CAROLYN VALLECILLO Room: [facility]..#: [id number] Admission: 12/11/19 Attend Phys: Francine Mensah, Discharge: Date of : 35 Date of Service: 12/11/19 1232 Report #: [id number] THIS REPORT FOR: cc: Monserrat Cardenas Maggie M. DO Holkins, John M. MD [facility] ~ THIS REPORT FOR: //name// 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: : 1935 Requested By: Sugar Wheeler Order Number: [id number] : Matthew Mayberry Measurements Intervals [place] Rate: 71 P: 51 TX: 194 QRS: -62 QRSD: 89 T: -29 QT: 574 QTc: 624 Interpretive Statements Sinus rhythm Inferior infarct, old Consider anterolateral infarct Prolonged QT interval Baseline wander in lead(s) II,III,aVR,aVF Compared to ECG 10/01/2018 09:38:34 Prolonged QT interval now present Myocardial infarct finding still present Electronically Signed On 12-11-2019 16:41:36 MECHANICAL SUPERVISOR by Matthew Mayberry [email or web address] <ELECTRONICALLY SIGNED> By: Matthew Mayberry MD, [facility] 12/11/19 1641 1232 1232 Matthew Mayberry MD, [facility] /EPI
[2019-12-11 16:55] VITALS: BP 133/33
[2019-12-11 20:45] VITALS: BP 128/90
[2019-12-12 04:06] LABS: HEMATOCRIT 40.2 % (42.0-52.0); HEMOGLOBIN 13.5 gm/dL (14.0-18.0); MCHC 33.7 g/dL (28.0-37.0); MCV 83.1 fL (80.0-100.0); MPV 8.8 fl. (7.2-11.1); RBC 4.84 mil/uL (4.50-6.00); RDW-CV 14.8 % (10.5-14.5); WBC 8.9 thou/uL (4.0-11.0)
[2019-12-12 04:45] LABS: ALBUMIN 3.2 g/dL (3.4-5.0); CALCIUM 8.3 mg/dL (8.5-10.1); CREATININE 1.3 mg/dL (0.6-1.3); MAGNESIUM 1.8 mg/dL (1.8-2.4); POTASSIUM 3.7 mmol/L (3.5-5.1); TOTAL BILIRUBIN 0.2 mg/dL (<0.1-1.0); TOTAL PROTEIN 6.4 g/dL (6.4-8.2)
--- NOTE | 2019-12-12 06:59 | NUR ---
ASSUMED CARE OF PT 12/11/19 AT APPROX 1930, PT A&OX4, PT ON ROOM AIR, VSS, ASSESSMENTS AND HOURLY ROUNDINGS COMPLETED, PT HAD NO COMPLAINTS THIS SHIFT.
--- NOTE | 2019-12-12 09:00 | NUR ---
PATIENT AWAKE DURING BEDSIDE REPORT. A&OX4, ABLE TO EXPRESS NEEDS TO STAFF. ASSESSMENT COMPLETE. VS OBTAINED. NO C/O PAIN, SOA, N/V OR OTHER DISTRESS. CALL LIGHT IN REACH. HOURLY ROUNDING FOR SAFETY AND PATIENT NEEDS.
[2019-12-12 09:06] VITALS: BP 181/79
[2019-12-12] MEDS ORDERED: TRADJENTA5 MG PO (10:05)
[2019-12-12] MEDS ORDERED: AMARYL4 MG PO (10:15)
--- NOTE | 2019-12-12 15:00 | NUR ---
PATIENT STATES "I KNOW WHY MY SUGAR'S SO HIGH. IT WAS THAT BREAKFAST, PANCAKES WITH SYRYP." ADDED CARB CONTROL DIET, HEART HEALTHY SECONDARY DIET.
--- NOTE | 2019-12-12 15:07 | NUR ---
PT.UP IN ROOM. SPOKE WITH HIM REGARDING HOME HEALTH AT DISCHARGE. HE THINKS HE USED [facility] IN THE PAST. HE WOULD LIKE TO USE THEM AGAIN. HE LIVES WITH HIS . HE IS NORMALLY INDEPENDENT AT HOME. HE HAS A CANE AND WALKER. NORMALLY USES HIS CANE. HE SAID HIS HOUSE IS HANDICAP ACCESSIBLE. HE DOES NOT DRIVE BUT HIS DOES. HE SAID HE CHECKS HIS BLOOD SUGARS ABOUT 4 TIMES PER DAY. HE DIDN'T KNOW HOW HIS BLOOD SUGARS GOT SO OUT OF CONTROL. HE SAID TOLD HIM HE DOESN'T EAT THE RIGHT THINGS. WILL CONSULT ROLL CLAMP OPERATOR. HE WOULD LIKE TO MAKE FOR HIM. FAXED REFERRAL TO [facility] WITH POSSIBLE DISCHARGE FOR TOMORROW.
[2019-12-12 15:22] VITALS: BP 181/79
[2019-12-12 16:22] VITALS: BP 135/67
--- NOTE | 2019-12-12 18:30 | NUR ---
PATIENT RESTING IN BED. UP TO CHAIR FOR MOST OF AFTERNOON. ACCEPTED CHANGE IN DC PLAN. GLUCOSE 123 AT EVENING MEAL. NO C/O PAIN, N/V, SOA OR OTHER DISTRESS. CALL LIGHT IN REACH. HOURLY ROUNDING FOR SAFETY AND PATIENT NEEDS.
[2019-12-12 21:20] VITALS: BP 152/62
[2019-12-13 02:08] LABS: GLYCOHEMOGLOBIN (HGB A1C) 13.1 % (4.8-5.6)
--- NOTE | 2019-12-13 05:26 | NUR ---
PATIENT HAS SLEPT WELL THROUGHOUT THE NIGHT. VSS ON RA. NO C/O PAIN. MEDICATIONS GIVEN ORDERED AND CHARTED. BS AT BEDTIME WAS 198. IV IN LEFT AC-SL. PATIENT INSTRUCTED TO USE CALL LIGHT WHEN NEEDING ASSISTANCE. HOURLY ROUNDS MADE. WILL CONTINUE WITH PLAN OF CARE AND NURSING TO MONITOR.
[2019-12-13 07:55] VITALS: BP 151/77
[2019-12-13 10:05] VITALS: BP 152/62
[2019-12-13] MEDS ORDERED: LANTUS SUBQ (10:21)
--- NOTE | 2019-12-13 15:10 | NUR ---
PT A/O X'S 4. NO C/O PAIN. PT SAT IN CHAIR THIS AM. PT AMBULATING WITH CANE. VSS. AFEBRILE.
--- NOTE | 2019-12-13 15:49 | NUR ---
CHECKED COPAYS AT PT.S PHARMACY FOR LANTUS INSULIN AND TRAJENTA PER REQUEST. LANTUS IS $141/MONTH AND TRAJENTA IS $47/MONTH. INFORMED PT AND . SAID SHE THOUGHT THEY COULD AFFORD THIS. PT.TO BE DISCHARGED TODAY. NOTIFIED [facility] AND FAXED DISCHARGE SUMMARY TO THEM. INFORMED , APPT.IS MADE FOR PT.TO SEE .
--- NOTE | 2019-12-13 16:33 | NUR ---
RECEIVED DISCHARGE PAPERS. IV DISCHARGED. DISCHARGE INSTRUCTIONS GIVEN TO PT. PT COMMUNICATES UNDERSTANDING. ALL BELONGINGS PACKED UP AND LEFT WITH PATIENT.
== END 2019-12-13 16:30 | disposition home health service (06) ==
LOC: M.ERS 11:52 → M.TBA-ER 14:24 → M.ORTHSURG 16:45
PROVIDERS: Personal Emergency Response Attendant; ADMIT Internal Medicine
DX: E11.65 Type 2 diabetes mellitus with hyperglycemia (principal); E78.5 Hyperlipidemia, unspecified; I25.10 Atherosclerotic heart disease of native coronary artery without angina pectoris; I25.2 Old myocardial infarction; J44.9 Chronic obstructive pulmonary disease, unspecified; E11.22 Type 2 diabetes mellitus with diabetic chronic kidney disease; I12.9 Hypertensive chronic kidney disease with stage 1 through stage 4 chronic kidney disease, or unspecified chronic kidney disease; N18.3 Chronic kidney disease, stage 3 (moderate); Z86.73 Personal history of transient ischemic attack (TIA), and cerebral infarction without residual deficits; Z87.891 Personal history of nicotine dependence; Z98.890 Other specified postprocedural states; R53.81 Other malaise; Z91.14 Patient's other noncompliance with medication regimen

== ENCOUNTER 2021-02-28 14:48 | Emergency (ER) | payer OTHER ==
[~2021-02-28] VITALS: Ht 172.7 cm; Wt 73.9 kg
[~2021-02-28 14:48] MED LIST changes: +LANTUS SUBQ; +TRADJENTA5 MG PO
[2021-02-28 18:22] VITALS: BP 143/50
== END 2021-02-28 18:24 | disposition home or self-care (01) ==
LOC: M.ERS 14:48
DX: S12.491A Other nondisplaced fracture of fifth cervical vertebra, initial encounter for closed fracture (principal); S01.81XA Laceration without foreign body of other part of head, initial encounter; S63.592A Other specified sprain of left wrist, initial encounter; I13.10 Hypertensive heart and chronic kidney disease without heart failure, with stage 1 through stage 4 chronic kidney disease, or unspecified chronic kidney disease; E11.22 Type 2 diabetes mellitus with diabetic chronic kidney disease; N18.30 Chronic kidney disease, stage 3 unspecified; J44.9 Chronic obstructive pulmonary disease, unspecified; I25.10 Atherosclerotic heart disease of native coronary artery without angina pectoris; Z95.1 Presence of aortocoronary bypass graft; Z86.73 Personal history of transient ischemic attack (TIA), and cerebral infarction without residual deficits; Z79.4 Long term (current) use of insulin; Z88.2 Allergy status to sulfonamides; Z88.8 Allergy status to other drugs, medicaments and biological substances; Z88.1 Allergy status to other antibiotic agents; W01.0XXA Fall on same level from slipping, tripping and stumbling without subsequent striking against object, initial encounter; Y93.89 Activity, other specified; Y92.89 Other specified places as the place of occurrence of the external cause; Y99.8 Other external cause status

== ENCOUNTER 2021-03-03 12:00 | Emergency (ER) | payer OTHER ==
[~2021-03-03] VITALS: Ht 172.7 cm; Wt 73.5 kg
[2021-03-03] MEDS ORDERED: AMITRIPTYLINE H25 M3 PO (13:44)
[2021-03-03] MEDS ORDERED: MEDROLDOSEPACK PO (14:03)
[2021-03-03 14:30] VITALS: BP 174/70
== END 2021-03-03 14:31 | disposition home or self-care (01) ==
LOC: M.ERS 12:00
DX: G50.0 Trigeminal neuralgia (principal); R51.9 Headache, unspecified; H92.02 Otalgia, left ear; E11.22 Type 2 diabetes mellitus with diabetic chronic kidney disease; I12.9 Hypertensive chronic kidney disease with stage 1 through stage 4 chronic kidney disease, or unspecified chronic kidney disease; N18.30 Chronic kidney disease, stage 3 unspecified; E78.5 Hyperlipidemia, unspecified; J44.9 Chronic obstructive pulmonary disease, unspecified; I25.10 Atherosclerotic heart disease of native coronary artery without angina pectoris; I25.2 Old myocardial infarction; Z98.890 Other specified postprocedural states; Z95.5 Presence of coronary angioplasty implant and graft; Z79.899 Other long term (current) drug therapy; Z79.4 Long term (current) use of insulin; Z79.82 Long term (current) use of aspirin; Z88.1 Allergy status to other antibiotic agents; Z88.8 Allergy status to other drugs, medicaments and biological substances; Z88.2 Allergy status to sulfonamides